=== PATIENT | male | born 1985 | race Caucasian/White ===

== ENCOUNTER 2016-09-20 07:47 | Emergency (ER) | payer OTHER ==
[~2016-09-20] VITALS: Ht 180.3 cm; Wt 113.4 kg
[2016-09-20 09:02] LABS: ANION GAP 5 MEQ/L (8-16); BLOOD UREA NITROGEN 13 MG/DL (7-18); CALCIUM LEVEL 8.8 MG/DL (8.5-10.1); CARBON DIOXIDE LEVEL 28 MEQ/L (21-32); CHLORIDE LEVEL 106 MEQ/L (98-107); CREATININE FOR GFR 1.29 MG/DL (0.70-1.30); GLOMERULAR FILTRATION RATE > 60.0 (>60); GLUCOSE, FASTING 103 MG/DL (70-105); POTASSIUM SERUM 4.2 MEQ/L (3.5-5.1); SODIUM LEVEL 139 MEQ/L (136-145); URIC ACID 8.5 MG/DL (3.5-7.2)
--- NOTE | 2016-09-20 09:15 | REP ---
Left foot four views. Comparison is 11/24/2005. Mineralization and joint spaces are normal. There is no acute fracture or dislocation. There is no plain film evidence of stress fracture. There are no calcifications or foreign bodies. Impression: Essentially negative left foot. No interval change. Signed by Owen Rosenthal MD 09/20/2016 09:06 A
[2016-09-20 09:17] LABS: BASO % 0.7 % (0.0-1.0); EOS % 0.8 % (0.0-3.0); LARGE UNSTAINED CELL # 0.1 K/mm3 (0.0-0.4); LARGE UNSTAINED CELL % 1.1 % (0.0-4.0); LYMPH % 16.1 % (24.0-44.0); MEAN CORPUSCULAR HEMOGLOBIN 32.3 pg (27.0-33.0); MEAN CORPUSCULAR HGB CONC 34.9 g/dl (32.0-36.5); MEAN CORPUSCULAR VOLUME 92.4 fl (80.0-96.0); MONO # 0.4 K/mm3 (0.0-0.8); MONO % 6.3 % (0.0-5.0); NEUTROPHILS # 4.7 K/mm3 (1.8-7.7); PLATELET COUNT, AUTOMATED 158 k/mm3 (150-450); RED CELL DISTRIBUTION WIDTH 12.5 % (11.5-14.5); WHITE BLOOD COUNT 6.3 K/mm3 (4.0-10.0)
[2016-09-20] MEDS ORDERED: INDO50CA PO (09:56)
[2016-09-20 10:01] VITALS: BP 124/88
== END 2016-09-20 10:03 | disposition home or self-care (01) ==
LOC: M ED 09:07
DX: M10.072 Idiopathic gout, left ankle and foot (principal)

== ENCOUNTER 2016-12-18 07:31 | Emergency (ER) | payer OTHER ==
[~2016-12-18] VITALS: Ht 180.3 cm; Wt 98.1 kg
[~2016-12-18 07:31] MED LIST: INDO50CA PO
[2016-12-18 07:34] VITALS: BP 124/65
[2016-12-18] MEDS ORDERED: MULTCAP11 PO (07:40)
[2016-12-18] MEDS ORDERED: TRIA1CR80 TOP (07:58)
[2016-12-18] MEDS ORDERED: ELIM5CRE2 TOP (07:58)
== END 2016-12-18 08:04 | disposition home or self-care (01) ==
LOC: M ED 07:31
DX: L23.7 Allergic contact dermatitis due to plants, except food (principal); B86 Scabies

== ENCOUNTER 2017-07-07 20:21 | Emergency (ER) | payer OTHER ==
[2017-07-07] MEDS: PERCOCET 5MG/325MG TAB PO (20:45)
[2017-07-07] MEDS ORDERED: IBUPROFEN 600 MG TAB PO (21:15)
== END 2017-07-07 22:41 | disposition home or self-care (01) ==
LOC: M ED 20:21
DX: M23.92 Unspecified internal derangement of left knee (principal); X50.9XXA Other and unspecified overexertion or strenuous movements or postures, initial encounter; Y92.018 Other place in single-family (private) house as the place of occurrence of the external cause
CPT/HCPCS: 73564

== ENCOUNTER → 2018-02-15 | Outpatient (REF) | payer OTHER | LOC: M LAB REF 17:53 | DX: J02.9 Acute pharyngitis, unspecified (principal) ==

== ENCOUNTER → 2018-07-17 | Outpatient (CLI) | payer OTHER ==
[~2018-07-17] MED LIST changes: +ELIM5CRE2 TOP; +IBUP-1022 PO; +INDO50CA; +MULTCAP11 PO; +TRIA1CR80 TOP
--- NOTE | 2018-07-17 13:26 | REP ---
LUMBAR SPINE, FIVE VIEWS: HISTORY: Back pain. There is no acute fracture. The intervertebral discs are normal in height. The facet joints are normal in appearance. There are 3 mm of retrolisthesis of L5 on S1. IMPRESSION: There is no acute fracture or subluxation. Electronically Signed by Kennedy Barrios MD 07/17/2018 01:30 P
== END ==
LOC: M ADAMS 10:43
PROVIDERS: ATTEND Physician Assistant Medical
DX: M54.5 Low back pain (principal)

== ENCOUNTER → 2018-09-09 | Outpatient (REF) | payer OTHER ==
[~2018-09-09] MED LIST changes: -INDO50CA; -INDO50CA PO; +INDO50CA11; +INDO50CA11 PO
== END ==
LOC: M SFHCADAM 11:47
PROVIDERS: ATTEND Family Medicine
DX: Z00.00 Encounter for general adult medical examination without abnormal findings (principal); M12.9 Arthropathy, unspecified; W57.XXXA Bitten or stung by nonvenomous insect and other nonvenomous arthropods, initial encounter; Z53.9 Procedure and treatment not carried out, unspecified reason

== ENCOUNTER → 2018-09-21 | Outpatient (REF) | payer OTHER ==
[2018-09-21 13:17] LABS: BASO % 0.7 % (0.0-1.0); EOS # 0.1 10^3/uL (0.0-0.50); HEMATOCRIT 52.5 % (42.0-52.0); HEMOGLOBIN 18.1 g/dl (13.5-17.5); LYMPH # 1.4 10^3/uL (1.5-4.5); LYMPH % 24.1 % (24.0-44.0); MEAN CORPUSCULAR HEMOGLOBIN 31.4 pg (27.0-33.0); MEAN CORPUSCULAR HGB CONC 34.5 g/dl (32.0-36.5); MONO # 0.5 10^3/uL (0.0-0.8); MONO % 8.7 % (0.0-5.0); NEUTROPHILS # 3.8 10^3/uL (1.8-7.7); NEUTROPHILS % 64.2 % (36.0-66.0); PLATELET COUNT, AUTOMATED 154 10^3/uL (150-450); RED BLOOD COUNT 5.77 10^6/uL (4.30-6.10); WHITE BLOOD COUNT 5.9 10^3/uL (4.0-10.0)
[2018-09-21 13:32] LABS: ALT/SGPT 157 U/L (12-78); BILIRUBIN,TOTAL 0.7 MG/DL (0.2-1.0); BLOOD UREA NITROGEN 17 MG/DL (7-18); C REACTIVE PROTEIN QUANTITATIV 0.45 MG/DL (0.00-0.30); CALCIUM LEVEL 8.6 MG/DL (8.5-10.1); CARBON DIOXIDE LEVEL 28 MEQ/L (21-32); CHLORIDE LEVEL 107 MEQ/L (98-107); CHOLESTEROL LEVEL 110 MG/DL (<200); CHOLESTEROL RISK RATIO 2.894 (<5); CREATININE FOR GFR 1.25 MG/DL (0.70-1.30); FREE T4 1.24 NG/DL (0.76-1.46); GLOMERULAR FILTRATION RATE > 60.0 (>60); GLUCOSE, FASTING 88 MG/DL (70-100); HDL CHOLESTEROL 38 MG/DL (>40); LDL CHOLESTEROL 60 MG/DL (<100); NON-HDL-C 72 MG/DL; POTASSIUM SERUM 4.6 MEQ/L (3.5-5.1); RHEUMATOID FACTOR QUANT < 10.0 IU/ML (<15.0); SODIUM LEVEL 142 MEQ/L (136-145); TOTAL PROTEIN 7.8 GM/DL (6.4-8.2); TRIGLYCERIDES LEVEL 59 MG/DL (<150)
[2018-09-21 13:52] LABS: ERYTHROCYTE SEDIMENTATION RATE 3 mm/hr (0-15)
[2018-09-23 00:08] LABS: ANTINUCLEAR ANTIBODIES DIRECT Negative (Negative); Lyme Disease IgG/IgM Antibodie <0.91 ISR (0.00-0.90); Lyme Disease IgM Ab Quantitati <0.80 index (0.00-0.79)
== END ==
LOC: M SFHCADAM 08:56
PROVIDERS: ATTEND Family Medicine
DX: Z00.00 Encounter for general adult medical examination without abnormal findings (principal); M12.9 Arthropathy, unspecified

== ENCOUNTER → 2018-10-01 | Outpatient (CLI) | payer OTHER ==
--- NOTE | 2018-10-01 09:45 | REP ---
Abdominal right upper quadrant ultrasound for elevated liver function tests: There is no cholelithiasis, gallbladder wall thickening or pericholecystic fluid. There is no intrahepatic or extrahepatic biliary duct dilatation, the common duct measures 4.7 mm in diameter. The hepatic parenchyma is diffusely hyperechoic compatible with hepato steatosis. The liver is enlarged measuring 19.8 cm craniocaudad length in the midclavicular line. The visualized pancreatic parenchyma is unremarkable. Portions of the pancreas are obscured. The right kidney is normal size measuring 11.2 x 6.6 x 6.4 cm. There is no right renal hydronephrosis, calculus, mass or cyst. There is no right upper quadrant ascites. Impression: The liver is enlarged and the hepatic parenchyma is diffusely hyperechoic compatible with hepato steatosis. The Otherwise, negative right upper quadrant ultrasound. Electronically Signed by Owen Rosenthal MD 10/01/2018 09:37 A
== END ==
LOC: M RAD 08:48
PROVIDERS: ATTEND Family Medicine
DX: R16.0 Hepatomegaly, not elsewhere classified (principal)

== ENCOUNTER 2019-03-27 22:12 | Emergency (ER) | payer OTHER ==
[~2019-03-27] VITALS: Ht 182.9 cm; Wt 115.5 kg
[~2019-03-27 22:12] MED LIST changes: -INDO50CA11; -INDO50CA11 PO; +INDO50CA91; +INDO50CA91 PO
[2019-03-27] MEDS ORDERED: GUAI1TAB15 PO (22:28)
[2019-03-27] MEDS ORDERED: ACETAMINOPHEN 500 MG TAB PO ONE (22:30)
[2019-03-27] MEDS ORDERED: KETOROLAC 60 MG/2 ML VIAL (J1885) IM ONE (22:30)
[2019-03-27 23:28] LABS: INFLUENZA A AMPLIFICATION NEGATIVE (NEGATIVE); INFLUENZA B AMPLIFICATION NEGATIVE (NEGATIVE)
[2019-03-27] MEDS ORDERED: ZITHTAB PO (23:33)
[2019-03-27] MEDS ORDERED: PRED20TA PO (23:33)
[2019-03-27 23:46] VITALS: BP 96/52
--- NOTE | 2019-03-28 08:48 | REP ---
Chest x-ray: Two views. History: Fever . Comparison study: March 16, 2008 . Findings: The lungs are well inflated and free of infiltrate. There is minimal linear opacity at the left base consistent with plate-like atelectasis or fibrosis. The pleural angles are sharp. The heart size is normal. Pulmonary vasculature is not increased. No significant bony abnormality is seen. Impression: Minimal linear density at the left base consistent with plate-like atelectasis or fibrosis. Otherwise negative chest x-ray. Electronically Signed by Mack Medina MD 03/28/2019 08:39 A
== END 2019-03-27 23:51 | disposition home or self-care (01) ==
LOC: M ED 22:12
DX: J06.9 Acute upper respiratory infection, unspecified (principal); J20.9 Acute bronchitis, unspecified; R50.9 Fever, unspecified
CPT/HCPCS: 71046; 87502; 96372; 99284; J1885

== ENCOUNTER 2021-09-05 20:22 | Emergency (ER) | payer OTHER ==
[~2021-09-05] VITALS: Ht 182.9 cm; Wt 118.2 kg
[~2021-09-05 20:22] MED LIST changes: +GUAI1TAB15 PO; +PRED20TA PO; +ZITHTAB PO
[2021-09-05 22:36] LABS: BASO % 0.4 % (0.0-1.0); EOS # 0.1 10^3/uL (0.0-0.5); EOS % 0.5 % (0.0-3.0); HEMATOCRIT 46.9 % (42.0-52.0); HEMOGLOBIN 16.8 g/dl (13.5-17.5); LYMPH % 10.6 % (24.0-44.0); MEAN CORPUSCULAR HEMOGLOBIN 31.4 pg (27.0-33.0); MEAN CORPUSCULAR HGB CONC 35.8 g/dl (32.0-36.5); MEAN CORPUSCULAR VOLUME 87.7 fl (80.0-96.0); MONO # 0.6 10^3/uL (0.0-0.8); MONO % 6.1 % (2.0-8.0); NEUTROPHILS # 8.1 10^3/uL (1.5-8.5); PLATELET COUNT, AUTOMATED 155 10^3/uL (150-450); RED BLOOD COUNT 5.35 10^6/uL (4.30-6.10); WHITE BLOOD COUNT 9.9 10^3/uL (4.0-10.0)
[2021-09-05 22:53] LABS: BILIRUBIN,TOTAL 0.6 MG/DL (0.2-1.0); CALCIUM LEVEL 8.6 MG/DL (8.5-10.1); CREATININE FOR GFR 1.46 MG/DL (0.70-1.30); GLOMERULAR FILTRATION RATE 58.8 (>60); POTASSIUM SERUM 4.3 MEQ/L (3.5-5.1); TOTAL PROTEIN 7.4 GM/DL (6.4-8.2)
[2021-09-05 23:01] LABS: CK-MB VALUE MASS < 1.0 NG/ML (<3.6); CPK CREATINE PHOSPHOKINASE 299 U/L (39-308); MB/CK RELATIVE INDEX 0.33 (< OR =4)
[2021-09-06 01:21] VITALS: BP 132/86
== END 2021-09-06 02:47 | disposition left against medical advice (07) ==
LOC: M ED 20:22
DX: Z53.21 Procedure and treatment not carried out due to patient leaving prior to being seen by health care provider (principal)

== ENCOUNTER → 2023-09-29 | Outpatient (REF) | payer BC, OTHER ==
[~2023-09-29] MED LIST changes: +ACET1TAB55 PO; +ALLO100T PO; +CIPR-249 PO; +FLOM0.4C39 PO; +IBUP200C25 PO; +MELA5CAP2 PO; +PERC5TAB12 PO; +PROP20TA72 PO; +THERTAB52 PO
[2023-09-29 13:54] LABS: BASO # 0.1 10^3/uL (0.0-0.2); BASO % 0.9 % (0.0-1.0); EOS # 0.1 10^3/uL (0.0-0.5); EOS % 2.1 % (0.0-3.0); HEMATOCRIT 51.8 % (42.0-52.0); LYMPH # 1.5 10^3/uL (1.5-5.0); LYMPH % 21.9 % (24.0-44.0); MEAN CORPUSCULAR HEMOGLOBIN 31.6 pg (27.0-33.0); MEAN CORPUSCULAR HGB CONC 34.7 g/dl (32.0-36.5); MONO # 0.6 10^3/uL (0.0-0.8); MONO % 8.8 % (2.0-8.0); NEUTROPHILS # 4.4 10^3/uL (1.5-8.5); NEUTROPHILS % 65.7 % (36.0-66.0); PLATELET COUNT, AUTOMATED 145 10^3/uL (150-450); RED BLOOD COUNT 5.69 10^6/uL (4.30-6.10); WHITE BLOOD COUNT 6.7 10^3/uL (4.0-10.0)
[2023-09-29 13:58] LABS: ALBUMIN 4.1 G/DL (3.2-5.2); ALKALINE PHOSPHATASE 52 U/L (46-116); ALT/SGPT 79 U/L (7.0-40); AST/SGOT 36 U/L (<34); BILIRUBIN,TOTAL 0.6 MG/DL (0.3-1.2); BLOOD UREA NITROGEN 16 MG/DL (9-23); CALCIUM LEVEL 9.1 MG/DL (8.5-10.1); CARBON DIOXIDE LEVEL 28 MMOL/L (20-31); CHLORIDE LEVEL 108 MMOL/L (98-107); CHOLESTEROL LEVEL 108 MG/DL (<200); CHOLESTEROL RISK RATIO 2.81 (<5); CREATININE FOR GFR 1.15 MG/DL (0.70-1.30); GLOMERULAR FILTRATION RATE > 60.0 (>60); GLUCOSE, FASTING 95 MG/DL (60-100); HDL CHOLESTEROL 38.4 MG/DL (>40); LDL CHOLESTEROL 55.2 MG/DL (<100); NON-HDL-C 69.6 MG/DL; POTASSIUM SERUM 4.6 MMOL/L (3.5-5.1); SODIUM LEVEL 142 MMOL/L (136-145); TOTAL PROTEIN 7.3 G/DL (5.7-8.2); TRIGLYCERIDES LEVEL 72 MG/DL (<150)
[2023-09-29 14:00] LABS: THYROID STIMULATING HORMONE 1.618 uIU/ML (0.55-4.78)
[2023-09-29 14:01] LABS: FREE T4 1.32 NG/DL (0.89-1.76)
== END ==
LOC: M SFHCADAM 08:09
PROVIDERS: ATTEND Family Medicine
DX: Z00.00 Encounter for general adult medical examination without abnormal findings (principal)

== ENCOUNTER 2023-10-08 00:45 | Emergency (ER) | payer OTHER, SELFPAY ==
[~2023-10-08] VITALS: Ht 182.9 cm; Wt 127.2 kg
[~2023-10-08 00:45] MED LIST changes: -ALLO100T PO
[2023-10-08 00:51] VITALS: BP 145/77; TEMP 98.1; O2SAT 97
[2023-10-08] MEDS ORDERED: ALLO100T PO (01:41)
[2023-10-08 02:16] LABS: BASO # 0.1 10^3/uL (0.0-0.2); BASO % 0.7 % (0.0-1.0); EOS # 0.1 10^3/uL (0.0-0.5); HEMATOCRIT 51.2 % (42.0-52.0); HEMOGLOBIN 17.9 g/dl (13.5-17.5); LYMPH # 1.3 10^3/uL (1.5-5.0); LYMPH % 15.8 % (24.0-44.0); MEAN CORPUSCULAR HEMOGLOBIN 31.5 pg (27.0-33.0); MONO # 0.7 10^3/uL (0.0-0.8); MONO % 8.5 % (2.0-8.0); NEUTROPHILS # 6.2 10^3/uL (1.5-8.5); NEUTROPHILS % 73.8 % (36.0-66.0); PLATELET COUNT, AUTOMATED 165 10^3/uL (150-450); RED BLOOD COUNT 5.69 10^6/uL (4.30-6.10); WHITE BLOOD COUNT 8.4 10^3/uL (4.0-10.0)
[2023-10-08 02:47] LABS: ALBUMIN 4.1 G/DL (3.2-5.2); ALKALINE PHOSPHATASE 53 U/L (46-116); ALT/SGPT 90 U/L (7.0-40); AST/SGOT 40 U/L (<34); BILIRUBIN,TOTAL 0.6 MG/DL (0.3-1.2); BLOOD UREA NITROGEN 18 MG/DL (9-23); CALCIUM LEVEL 9.6 MG/DL (8.5-10.1); CARBON DIOXIDE LEVEL 28 MMOL/L (20-31); CHLORIDE LEVEL 106 MMOL/L (98-107); CK-MB VALUE MASS < 1.0 NG/ML (<3.6); CREATININE FOR GFR 1.26 MG/DL (0.70-1.30); GLOMERULAR FILTRATION RATE > 60.0 (>60); GLUCOSE, FASTING 96 MG/DL (60-100); POTASSIUM SERUM 3.8 MMOL/L (3.5-5.1); SODIUM LEVEL 139 MMOL/L (136-145); TOTAL PROTEIN 7.3 G/DL (5.7-8.2)
[2023-10-08 02:49] LABS: FREE T4 1.49 NG/DL (0.89-1.76); THYROID STIMULATING HORMONE 1.875 uIU/ML (0.55-4.78)
[2023-10-08 03:10] LABS: CPK CREATINE PHOSPHOKINASE 143 U/L (46-171); MB/CK RELATIVE INDEX 0.69 (< OR =4)
== END 2023-10-08 03:59 | disposition left against medical advice (07) ==
LOC: M ED 00:45
DX: Z53.21 Procedure and treatment not carried out due to patient leaving prior to being seen by health care provider (principal)

== ENCOUNTER → 2023-10-08 | Outpatient (REF) | payer OTHER, SELFPAY ==
[~2023-10-08] MED LIST changes: -ACET1TAB55 PO; -CIPR-249 PO; -FLOM0.4C39 PO; -IBUP200C25 PO; -MELA5CAP2 PO; -PERC5TAB12 PO; -PROP20TA72 PO; -THERTAB52 PO
== END ==
LOC: M SFHCPLAZ 16:07
PROVIDERS: ATTEND Student in an Organized Health Care Education/Training Program
DX: R00.0 Tachycardia, unspecified (principal)

== ENCOUNTER → 2023-10-23 | Outpatient (REF) | payer BC, OTHER ==
[~2023-10-23] MED LIST changes: +ACET1TAB55 PO; +ALLO100T PO; +CIPR-249 PO; +FLOM0.4C39 PO; +IBUP200C25 PO; +MELA5CAP2 PO; +PERC5TAB12 PO; +PROP20TA72 PO; +THERTAB52 PO
[2023-10-26 17:02] LABS: LYME TOTAL ANTIBODY CIA <= 0.90 Index (<=0.90)
== END ==
LOC: M SFHCADAM 08:56
PROVIDERS: ATTEND Family Medicine
DX: M10.9 Gout, unspecified (principal)

== ENCOUNTER 2023-10-25 17:43 | Inpatient (IN) | payer BC, OTHER ==
[~2023-10-25] VITALS: Ht 182.9 cm; Wt 130.3 kg
[~2023-10-25 17:43] MED LIST changes: -ACET1TAB55 PO; -CIPR-249 PO; -FLOM0.4C39 PO; -IBUP200C25 PO; -MELA5CAP2 PO; -PERC5TAB12 PO; -PROP20TA72 PO; -THERTAB52 PO
[2023-10-25] MEDS: ONDANSETRON 4MG 2ML VIAL IV ONE (18:08)
[2023-10-25] MEDS: KETOROLAC 30 MG/ML 1ML VIAL IV ONE (18:08)
[2023-10-25] MEDS: MORPHINE 4 MG/ML 1ML VIAL IV ONE (18:09)
[2023-10-25] MEDS: NS 500 ML IV ONE ×2 (18:09→19:10)
[2023-10-25 18:13] LABS: BASO % 0.5 % (0.0-1.0); EOS % 0.1 % (0.0-3.0); HEMATOCRIT 46.7 % (42.0-52.0); HEMOGLOBIN 16.5 g/dl (13.5-17.5); LYMPH # 0.9 10^3/uL (1.5-5.0); LYMPH % 10.1 % (24.0-44.0); MEAN CORPUSCULAR HEMOGLOBIN 31.1 pg (27.0-33.0); MEAN CORPUSCULAR HGB CONC 35.3 g/dl (32.0-36.5); MEAN CORPUSCULAR VOLUME 87.9 fl (80.0-96.0); MONO # 0.4 10^3/uL (0.0-0.8); MONO % 4.2 % (2.0-8.0); NEUTROPHILS # 7.3 10^3/uL (1.5-8.5); NEUTROPHILS % 84.8 % (36.0-66.0); PLATELET COUNT, AUTOMATED 165 10^3/uL (150-450); RED BLOOD COUNT 5.31 10^6/uL (4.30-6.10); WHITE BLOOD COUNT 8.6 10^3/uL (4.0-10.0)
[2023-10-25 18:34] LABS: BILIRUBIN,TOTAL 0.9 MG/DL (0.3-1.2); CALCIUM LEVEL 9.5 MG/DL (8.5-10.1); CREATININE FOR GFR 1.61 MG/DL (0.70-1.30); POTASSIUM SERUM 4.4 MMOL/L (3.5-5.1); TOTAL PROTEIN 7.3 G/DL (5.7-8.2)
[2023-10-25] MEDS: MORPHINE 2 MG/ML 1ML VIAL IV ONE ×2 (19:56→20:32)
[2023-10-25] MEDS: NS 1,000 ML IV ONE (20:25)
[2023-10-25] MEDS: TAMSULOSIN 0.4 MG CAP PO ONE (20:32)
[2023-10-25] MEDS ORDERED: MELA5CAP2 PO (21:36)
[2023-10-25] MEDS ORDERED: THERTAB52 PO (21:36)
[2023-10-25] MEDS ORDERED: PROP20TA72 PO (21:36)
[2023-10-25] MEDS ORDERED: IBUP200C25 PO (21:36)
[2023-10-25] MEDS ORDERED: HOME MED LIST COMPLETE! XX SCH (21:40)
[2023-10-25] MEDS ORDERED: HYDROMORPHONE HCL 0.5 MG/ 0.5 ML SYRINGE IV PRN (21:55)
[2023-10-25] MEDS ORDERED: MOM 30ML SUSPENSION UDC PO PRN (21:55)
[2023-10-25] MEDS ORDERED: ACETAMINOPHEN TAB 650MG DOSE (2X325MG) PO PRN (21:55)
[2023-10-25] MEDS: HYDROMORPHONE HCL 0.5 MG/ 0.5 ML SYRINGE IV ONE (22:00)
[2023-10-25] MEDS ORDERED: PROPRANOLOL 20 MG TAB PO PRN (22:00)
[2023-10-26] MEDS ORDERED: KETOROLAC 30 MG/ML 1ML VIAL IV PRN
[2023-10-26 00:02] VITALS: BP 139/76; TEMP 97.6; O2SAT 94
[2023-10-26] MEDS: allopurinoL 100 MG TAB PO SCH (00:16)
[2023-10-26] MEDS: LR 1,000 ML IV SCH (00:17)
[2023-10-26 04:00] VITALS: BP 136/77; TEMP 97.2; O2SAT 96
[2023-10-26 05:58] LABS: HEMATOCRIT 43.3 % (42.0-52.0); HEMOGLOBIN 15.1 g/dl (13.5-17.5); MEAN CORPUSCULAR HEMOGLOBIN 31.3 pg (27.0-33.0); MEAN CORPUSCULAR HGB CONC 34.9 g/dl (32.0-36.5); MEAN CORPUSCULAR VOLUME 89.8 fl (80.0-96.0); PLATELET COUNT, AUTOMATED 128 10^3/uL (150-450); RED BLOOD COUNT 4.82 10^6/uL (4.30-6.10); WHITE BLOOD COUNT 8.2 10^3/uL (4.0-10.0)
[2023-10-26 06:19] LABS: BLOOD UREA NITROGEN 17 MG/DL (9-23); CALCIUM LEVEL 8.8 MG/DL (8.5-10.1); CARBON DIOXIDE LEVEL 29 MMOL/L (20-31); CHLORIDE LEVEL 110 MMOL/L (98-107); CREATININE FOR GFR 1.42 MG/DL (0.70-1.30); GLOMERULAR FILTRATION RATE > 60.0 (>60); GLUCOSE, FASTING 100 MG/DL (60-100); SODIUM LEVEL 144 MMOL/L (136-145)
[2023-10-26 08:00] VITALS: BP 116/61; TEMP 97.5; O2SAT 97
[2023-10-26] MEDS: ENOXAPARIN 40MG/0.4ML SYRINGE (J1650 PER 10MG) SC SCH (08:19)
[2023-10-26] MEDS ORDERED: TAMSULOSIN 0.4 MG CAP PO SCH ×2 (09:00→21:00)
[2023-10-26] MEDS: NS 0.45% 1,000 ML IV SCH (09:10)
[2023-10-26] MEDS ORDERED: FLOM0.4C39 PO (09:37)
[2023-10-26 12:00] VITALS: BP 145/85; TEMP 97.5; O2SAT 96
[2023-10-26] MEDS ORDERED: CIPR-249 PO (14:37)
[2023-10-26] MEDS ORDERED: ACET1TAB55 PO (14:37)
[2023-10-26] MEDS ORDERED: PERC5TAB12 PO (14:39)
[2023-10-26 14:49] LABS: BLOOD UREA NITROGEN 14 MG/DL (9-23); CALCIUM LEVEL 8.4 MG/DL (8.5-10.1); CARBON DIOXIDE LEVEL 27 MMOL/L (20-31); CHLORIDE LEVEL 110 MMOL/L (98-107); CREATININE FOR GFR 1.19 MG/DL (0.70-1.30); GLOMERULAR FILTRATION RATE > 60.0 (>60); GLUCOSE, FASTING 92 MG/DL (60-100); POTASSIUM SERUM 4.2 MMOL/L (3.5-5.1); SODIUM LEVEL 142 MMOL/L (136-145)
[2023-10-26] MEDS: D5W/0.45% SODIUM CHLORIDE 1,000 ML IV SCH (15:53)
[2023-10-26] MEDS ORDERED: fentaNYL 100 MCG/2 ML INJECTION As Ordered ONE (16:10)
[2023-10-26] MEDS ORDERED: LIDOCAINE 2% 100MG/5ML SDV (FOR ANES.) As Ordered ONE (16:10)
[2023-10-26] MEDS ORDERED: MIDAZOLAM INJ 2MG/2ML VIAL As Ordered ONE (16:10)
[2023-10-26] MEDS ORDERED: propofoL 200 MG/20 ML VIAL As Ordered ONE (16:10)
[2023-10-26] MEDS ORDERED: ONDANSETRON 4MG 2ML VIAL As Ordered ONE (16:58)
[2023-10-26] MEDS: ceFAZolin 2 GM/D5W 50 ML IV BAG As Ordered ONE (17:04)
[2023-10-26] MEDS: ISOVUE-300 61% 100ML VIAL As Ordered ONE (17:11)
[2023-10-26] MEDS ORDERED: ACETAMINOPHEN 1000MG 100ML IV BAG As Ordered ONE (17:14)
[2023-10-26] MEDS ORDERED: METOCLOPRAMIDE INJ 10MG/2ML VIAL IV PRN (17:25)
[2023-10-26] MEDS ORDERED: ONDANSETRON 4MG 2ML VIAL IV PRN ×2 (17:25)
[2023-10-26] MEDS ORDERED: MEPERIDINE 25 MG/ML 1ML VIAL IV PRN (17:25)
[2023-10-26] MEDS ORDERED: oxyCODONE 5MG TAB PO PRN (17:25)
[2023-10-26] MEDS ORDERED: fentaNYL 100 MCG/2 ML INJECTION IV PRN (17:25)
[2023-10-26] MEDS ORDERED: diphenhydrAMINE 50MG/ML VIAL IV PRN (17:25)
[2023-10-26 18:10] VITALS: BP 141/70; TEMP 97.2; O2SAT 94
[2023-10-26 18:40] VITALS: BP 122/77; TEMP 97.2; O2SAT 93
[2023-10-26] MEDS: CIPROFLOXACIN 500MG TABLET PO ONE (18:58)
[2023-10-26] MEDS: TAMSULOSIN 0.4 MG CAP PO ONE (18:59)
== END 2023-10-26 19:06 | disposition home or self-care (01) | DRG 446 ==
LOC: M ED 17:43 → M ED INP 21:53 → M MSPAV 10-26
PROVIDERS: ADMIT Internal Medicine; ATTEND General Practice
PROC: 0TC68ZZ Extirpation of Matter from Right Ureter, Via Natural or Artificial Opening Endoscopic (ICD-10-PCS; principal; 2023-10-26 16:00)
DX: N13.2 Hydronephrosis with renal and ureteral calculous obstruction (principal); N17.9 Acute kidney failure, unspecified; R16.1 Splenomegaly, not elsewhere classified; M10.9 Gout, unspecified; F41.0 Panic disorder [episodic paroxysmal anxiety]; K76.0 Fatty (change of) liver, not elsewhere classified; Z79.899 Other long term (current) drug therapy

== ENCOUNTER → 2023-10-29 | Outpatient (REF) | payer BC, OTHER ==
[~2023-10-29] MED LIST changes: +ACET1TAB55 PO; +CIPR-249 PO; +FLOM0.4C39 PO; +IBUP200C25 PO; +MELA5CAP2 PO; +PERC5TAB12 PO; +PROP20TA72 PO; +THERTAB52 PO
[2023-10-29 14:33] LABS: ALBUMIN 4.1 G/DL (3.2-5.2); ALKALINE PHOSPHATASE 50 U/L (46-116); ALT/SGPT 77 U/L (7.0-40); AST/SGOT 29 U/L (<34); BILIRUBIN,TOTAL 0.8 MG/DL (0.3-1.2); BLOOD UREA NITROGEN 17 MG/DL (9-23); CALCIUM LEVEL 9.8 MG/DL (8.5-10.1); CARBON DIOXIDE LEVEL 27 MMOL/L (20-31); CHLORIDE LEVEL 105 MMOL/L (98-107); CREATININE FOR GFR 1.34 MG/DL (0.70-1.30); GLOMERULAR FILTRATION RATE > 60.0 (>60); GLUCOSE, FASTING 90 MG/DL (60-100); SODIUM LEVEL 140 MMOL/L (136-145); TOTAL PROTEIN 7.3 G/DL (5.7-8.2)
== END ==
LOC: M SFHCADAM 09:37
PROVIDERS: ATTEND Family Medicine
DX: N17.9 Acute kidney failure, unspecified (principal)

== ENCOUNTER → 2023-12-22 | Outpatient (REF) | payer BC ==
[~2023-12-22] MED LIST changes: +HYDR-643 PO
[2023-12-22 13:30] LABS: BLOOD UREA NITROGEN 16 MG/DL (9-23); CALCIUM LEVEL 10.1 MG/DL (8.5-10.1); CARBON DIOXIDE LEVEL 29 MMOL/L (20-31); CHLORIDE LEVEL 106 MMOL/L (98-107); CREATININE FOR GFR 1.25 MG/DL (0.70-1.30); GLOMERULAR FILTRATION RATE > 60.0 (>60); GLUCOSE, FASTING 88 MG/DL (60-100); POTASSIUM SERUM 4.7 MMOL/L (3.5-5.1); SODIUM LEVEL 140 MMOL/L (136-145)
== END ==
LOC: M SFHCADAM 09:32
PROVIDERS: ATTEND Physician Assistant Medical
DX: F41.0 Panic disorder [episodic paroxysmal anxiety] (principal); F51.04 Psychophysiologic insomnia; F43.21 Adjustment disorder with depressed mood

== ENCOUNTER 2023-12-25 00:03 | Emergency (ER) | payer BC ==
[~2023-12-25] VITALS: Ht 182.9 cm; Wt 123.3 kg
[2023-12-25 00:03] VITALS: TEMP 97
[~2023-12-25 00:03] MED LIST changes: -HYDR-643 PO
[2023-12-25 01:09] LABS: BASO % 0.6 % (0.0-1.0); EOS # 0.1 10^3/uL (0.0-0.5); EOS % 1.2 % (0.0-3.0); HEMATOCRIT 48.6 % (42.0-52.0); HEMOGLOBIN 16.8 g/dl (13.5-17.5); LYMPH # 1.5 10^3/uL (1.5-5.0); LYMPH % 22.4 % (24.0-44.0); MEAN CORPUSCULAR HEMOGLOBIN 30.5 pg (27.0-33.0); MEAN CORPUSCULAR HGB CONC 34.6 g/dl (32.0-36.5); MEAN CORPUSCULAR VOLUME 88.4 fl (80.0-96.0); MONO # 0.5 10^3/uL (0.0-0.8); MONO % 8.1 % (2.0-8.0); NEUTROPHILS # 4.4 10^3/uL (1.5-8.5); NEUTROPHILS % 67.4 % (36.0-66.0); PLATELET COUNT, AUTOMATED 139 10^3/uL (150-450); WHITE BLOOD COUNT 6.6 10^3/uL (4.0-10.0)
[2023-12-25 01:10] LABS: ALBUMIN 4.3 G/DL (3.2-5.2); ALKALINE PHOSPHATASE 50 U/L (46-116); ALT/SGPT 77 U/L (7.0-40); AST/SGOT 36 U/L (<34); BILIRUBIN,DIRECT 0.4 MG/DL (<0.4); BILIRUBIN,TOTAL 0.9 MG/DL (0.3-1.2); BLOOD UREA NITROGEN 18 MG/DL (9-23); CALCIUM LEVEL 9.1 MG/DL (8.5-10.1); CARBON DIOXIDE LEVEL 25 MMOL/L (20-31); CHLORIDE LEVEL 107 MMOL/L (98-107); CK-MB VALUE MASS < 1.0 NG/ML (<3.6); CREATININE FOR GFR 1.24 MG/DL (0.70-1.30); GLOMERULAR FILTRATION RATE > 60.0 (>60); GLUCOSE, FASTING 106 MG/DL (60-100); SODIUM LEVEL 138 MMOL/L (136-145); TOTAL PROTEIN 7.4 G/DL (5.7-8.2)
[2023-12-25 01:14] LABS: THYROID STIMULATING HORMONE 1.732 uIU/ML (0.55-4.78)
[2023-12-25 01:23] LABS: CPK CREATINE PHOSPHOKINASE 196 U/L (46-171); MB/CK RELATIVE INDEX 0.51 (< OR =4)
[2023-12-25] MEDS: ONDANSETRON 4MG ORAL DISINTEGRATING TAB PO ONE (02:44)
[2023-12-25] MEDS: GASTROGRAFIN SOLUTION 30ML PO SCH (03:03)
[2023-12-25 03:26] LABS: CK-MB VALUE MASS < 1.0 NG/ML (<3.6)
[2023-12-25 03:37] LABS: CPK CREATINE PHOSPHOKINASE 180 U/L (46-171); MB/CK RELATIVE INDEX 0.55 (< OR =4)
[2023-12-25] MEDS ORDERED: ISOVUE-370 76% 100ML VIAL As Ordered ONE (03:48)
[2023-12-25 05:41] VITALS: BP 127/77; O2SAT 100
[2023-12-25] MEDS ORDERED: HYDR-643 PO (08:15)
== END 2023-12-25 05:42 | disposition home or self-care (01) ==
LOC: M ED 00:03
DX: R07.9 Chest pain, unspecified (principal); R10.9 Unspecified abdominal pain; F41.9 Anxiety disorder, unspecified; F10.10 Alcohol abuse, uncomplicated; F43.10 Post-traumatic stress disorder, unspecified; Z87.442 Personal history of urinary calculi; Z79.899 Other long term (current) drug therapy
CPT/HCPCS: 36415; 71045; 74160; 80048; 80076; 82550; 82553; 83735; 84439; 84443; 84484; 85025; 93005; 99284; Q9963; Q9967

== ENCOUNTER → 2024-02-05 | Outpatient (CLI) | payer BC ==
[~2024-02-05] MED LIST changes: +HYDR-643 PO
== END ==
LOC: M RAD 06:01
PROVIDERS: ATTEND Physician Assistant
DX: M25.572 Pain in left ankle and joints of left foot (principal)

== ENCOUNTER → 2024-08-23 | Outpatient (REF) | payer BC ==
[~2024-08-23] MED LIST changes: -ELIM5CRE2 TOP; -FLOM0.4C39 PO; +PERM60CR8 TOP; +TAMS-18 PO
== END ==
LOC: M SFHCADAM 09:23
PROVIDERS: ATTEND Family Medicine
DX: Z53.9 Procedure and treatment not carried out, unspecified reason (principal)